=== PATIENT | female | born 1985 | race Native Hawaiian/Other Pacific Islander ===

== ENCOUNTER 2020-06-13 13:31 | Emergency (ER) | payer MEDICAID, OTHER ==
[~2020-06-13] VITALS: Ht 162.6 cm; Wt 70.8 kg
[2020-06-13 13:37] VITALS: BP 127/89
--- NOTE | 2020-06-13 13:38 | NUR ---
Pt ambulated to bed 12
[2020-06-13] MEDS ORDERED: cefTRIAXone 1,000 MG VIAL ONE (13:58)
[2020-06-13] MEDS ORDERED: LIDOCAINE MPF 1% 5 ML ONE (13:58)
[2020-06-13] MEDS: cefTRIAXone 1,000 MG in LIDOCAINE MPF 1% 2.1 ML IM ONE (14:05)
[2020-06-13] MEDS: KETOROLAC 30 MG/ML VIAL IM ONE (14:05)
--- NOTE | 2020-06-13 14:09 | NUR ---
34 Y/O FEMALE C/O RIGHT FOOT 4TH DIGIT TOE SWELLING X2-3 DAYS. PT DENIES ANY TRAUMA OR INJURY TO FOOT. NO DEFORMITY NOTED. MODERATE SWELLING NOTED. CMS+. PT AMBULATORY WITH STEADY GAIT. DENIES ANY N/V/D, CHILL, FEVER. PMH; DM NKA
--- NOTE | 2020-06-13 14:20 | NUR ---
PT STATES THAT SHES FEELING SLIGHLTY DIZZY AND NAUSEOUS UPON DISCHARGE, INSTRUCTED TO WAIT IN BED FOR 10 MINUTES TO MONITOR FOR ADVERSE DRUG REACTION
[2020-06-13 15:02] VITALS: BP 127/89
--- NOTE | 2020-06-13 15:03 | NUR ---
Patient discharged with v/s stable. Written and verbal after care instructions given and explained. Patient alert, oriented and verbalized understanding of instructions. Ambulatory with steady gait. All questions addressed prior to discharge. ID band removed. Patient advised to follow up with PMD. Rx of KEFLEX, IBUPROFEN given. Patient educated on indication of medication including possible reaction and side effects. Opportunity to ask questions provided and answered.
== END 2020-06-13 15:03 | disposition home or self-care (01) ==
LOC: MED 13:31
DX: L03.115 Cellulitis of right lower limb (principal); L97.519 Non-pressure chronic ulcer of other part of right foot with unspecified severity; E11.9 Type 2 diabetes mellitus without complications
CPT/HCPCS: 96372; 99284; J0696; J1885; J2001

== ENCOUNTER 2021-02-13 19:55 | Inpatient (IN) | payer MEDICAID, SELFPAY ==
[~2021-02-13] VITALS: Ht 157.5 cm; Wt 71.7 kg
[2021-02-13 20:13] VITALS: BP 112/48
[2021-02-13] MEDS ORDERED: NACL 0.9% 1,000 ML IV ONE (20:25)
--- NOTE | 2021-02-13 20:26 | NUR ---
35 Y/O F BIB AMB FROM HOME, PT C/O BODY ACHES, HEADACHE AND FEVER THAT STARTED 3 DAYS AGO. PT C/O EXTREME THIRST. PT IS CURRENTLY NOT C/O CHEST PAIN OR SOB. ORAL TEMP CURRENTLY IS 102 F. LMP: 6 YEARS AGO. NKA. PMH: DM2. GLU CHECK WAS 204. AMB ESTABLISHED 20G R AC IV, IV IS PATENT AND DRY. PT IS SITTING UP IN ROOM WITH GOWN ON.
--- NOTE | 2021-02-13 20:30 | NUR ---
RT AT BEDSIDE FOR ABG
--- NOTE | 2021-02-13 20:53 | NUR ---
LABS COLLECTED AND BLOOD CULTURES THROUGH IV, TOD, NOVEL, RSV AND FLU COLLECTED AT BEDSIDE. GIVEN TO JOSE ALLEN
[2021-02-13 21:00] LABS: BASOPHILS # (AUTO) 0.1 K/uL (0.00-0.22); BASOPHILS % (AUTO) 0.4 % (0.0-2.0); EOSINOPHILS % (AUTO) 0.1 % (0.0-4.0); HEMATOCRIT 31.2 % (36-48); HEMOGLOBIN 11.1 g/dL (12.0-16.0); LYMPHOCYTES # (AUTO) 0.9 K/uL (2.5-16.5); LYMPHOCYTES % (AUTO) 6.1 % (20.5-51.1); MEAN CORPUSCULAR HEMOGLOBIN 31 pg (27-31); MEAN CORPUSCULAR HGB CONC 36 g/dL (33-37); MEAN CORPUSCULAR VOLUME 86.7 fL (80-94); MONOCYTES # (AUTO) 0.7 K/uL (0.8-1.0); NEUTROPHILS # (AUTO) 12.5 K/uL (1.8-7.7); NEUTROPHILS % (AUTO) 88.4 % (42.2-75.2); PLATELET COUNT (AUTO) 251 K/uL (140-450); RED CELL DISTRIBUTION WIDTH 12.7 % (11.6-13.7); WHITE BLOOD COUNT (AUTO) 14.2 K/uL (4.8-10.8)
[2021-02-13 21:12] LABS: C-REACTIVE PROTEIN QUANT 16.8 mg/dL (0.0-0.9)
[2021-02-13 21:14] LABS: LACTATE DEHYDROGENASE 178 U/L (81-234)
[2021-02-13 21:16] LABS: ALBUMIN 3.5 g/dL (3.4-5.0); ANION GAP 15.9 (8-16); CARBON DIOXIDE 20.8 mmol/L (21-32); CREATININE 1.2 mg/dL (0.6-1.3); POTASSIUM 3.7 mmol/L (3.5-5.1); TOTAL BILIRUBIN 0.8 mg/dL (0.0-1.0)
[2021-02-13 21:33] LABS: PROTHROMBIN TIME 9.9 secs (10.8-13.4)
[2021-02-13 21:46] LABS: RSV NEGATIVE (NEGATIVE)
--- NOTE | 2021-02-13 21:47 | NUR ---
PER XUAN, FLU INVALID WILL REPEAT TEST
--- NOTE | 2021-02-13 22:10 | NUR ---
PT WAS GIVEN JELLO, JUICE AND PUDDING. PER ERMD, PT IS NOT NPO AND CAN HAVE FOOD AT THIS TIME.
[2021-02-13 23:00] LABS: APPEARANCE,URINE CLOUDY (CLEAR); BILIRUBIN,URINE NEGATIVE (NEGATIVE); BLOOD, URINE 1+ (NEGATIVE); COLOR,URINE YELLOW (YELLOW); LEUKOCYTE ESTERASE ,URINE 2+ (NEGATIVE); NITRITE, URINE POSITIVE (NEGATIVE); UGLUCOSE NEGATIVE (NEGATIVE)
[2021-02-13 23:09] LABS: RBC,URINE 0-5 /HPF (0-5); WBC,URINE 60-80 /HPF (0-5)
[2021-02-14] MEDS ORDERED: cefTRIAXone 1,000 MG VIAL ONE (00:24)
[2021-02-14] MEDS ORDERED: NACL 0.9% 1,000 ML IV ONE (00:25)
--- NOTE | 2021-02-14 00:43 | NUR ---
CONSENT WAS OBTAINED FOR CT ANGIO
--- NOTE | 2021-02-14 01:42 | NUR ---
PT BACK FROM IMAGING. WAS GIVEN WATER FOR C/O THIRST.
[2021-02-14] MEDS ORDERED: ACETAMINOPHEN EXTRA STRENGTH 500 MG TAB PO ONE (04:25)
[2021-02-14 06:00] LABS: BASOPHILS % (AUTO) 0.2 % (0.0-2.0); EOSINOPHILS % (AUTO) 0.4 % (0.0-4.0); HEMATOCRIT 28.8 % (36-48); HEMOGLOBIN 10.2 g/dL (12.0-16.0); LYMPHOCYTES # (AUTO) 1.3 K/uL (2.5-16.5); LYMPHOCYTES % (AUTO) 12.5 % (20.5-51.1); MEAN CORPUSCULAR HEMOGLOBIN 31 pg (27-31); MEAN CORPUSCULAR HGB CONC 35 g/dL (33-37); MEAN CORPUSCULAR VOLUME 88.7 fL (80-94); MONOCYTES # (AUTO) 0.8 K/uL (0.8-1.0); MONOCYTES % (AUTO) 7.3 % (1.7-9.3); NEUTROPHILS # (AUTO) 8.4 K/uL (1.8-7.7); NEUTROPHILS % (AUTO) 79.6 % (42.2-75.2); PLATELET COUNT (AUTO) 240 K/uL (140-450); RED BLOOD CELL COUNT(AUTO) 3.25 MIL/uL (4.20-5.40); RED CELL DISTRIBUTION WIDTH 12.6 % (11.6-13.7); WHITE BLOOD COUNT (AUTO) 10.5 K/uL (4.8-10.8)
--- NOTE | 2021-02-14 06:03 | NUR ---
Patient appears to be resting comfortably in bed. Vital Signs within normal limits. Respirations even and unlabored.
[2021-02-14 06:46] LABS: ANION GAP 16.5 (8-16); CARBON DIOXIDE 23.6 mmol/L (21-32); CREATININE 0.9 mg/dL (0.6-1.3); POTASSIUM 4.1 mmol/L (3.5-5.1); TOTAL BILIRUBIN 0.5 mg/dL (0.0-1.0)
--- NOTE | 2021-02-14 07:08 | NUR ---
REPORT GIVEN TO LENI DU.
--- NOTE | 2021-02-14 07:18 | NUR ---
REPORT RECEIVED FROM CATRINA DU, TRANSFER OF CARE AT THIS TIME.
--- NOTE | 2021-02-14 07:30 | NUR ---
PT SLEEPING WITH EVEN AND UNLABORED RESPIRATIONS. PT CONNECTED TO DEVELOPMENTAL BEHAVIORAL PHYSICIAN. WILL CONTINUE TO MONITOR
[2021-02-14] MEDS ORDERED: ZOLPIDEM 5 MG TAB PO PRN (07:45)
[2021-02-14] MEDS ORDERED: DOCUSATE SODIUM 100 MG GELCAP PO PRN (07:45)
[2021-02-14] MEDS ORDERED: ONDANSETRON 4 MG/2 ML VIAL IVP PRN (07:45)
[2021-02-14] MEDS ORDERED: HYDROcodone/APAP 5/325 MG 1 TAB TAB PO PRN (07:45)
[2021-02-14] MEDS ORDERED: LORazepam 2 MG/ML VIAL IM/IVP PRN (07:45)
[2021-02-14] MEDS ORDERED: HEPARIN PER PHARMACY MC PRN (07:45)
[2021-02-14] MEDS ORDERED: PIPERACILLIN/TAZOBACTAM 3.375 GM in DEXTROSE 5% 50 ML IV SCH (08:00)
[2021-02-14] MEDS ORDERED: PIPERACILLIN/TAZOBACTAM 3.375 GM VIAL IV ONE ×4 (08:04→23:47)
--- NOTE | 2021-02-14 08:15 | NUR ---
PT GIVEN BREAKFAST TRAY. PT SITTING IN BED WITH EVEN AND UNLABORED RESPIRATIONS
[2021-02-14] MEDS: PIPERACILLIN/TAZOBACTAM 3.375 GM in DEXTROSE 5% 50 ML IV SCH ×4 (08:17→23:55)
[2021-02-14] MEDS: NACL 0.9% 1,000 ML IV SCH ×2 (08:28→21:50)
--- NOTE | 2021-02-14 08:36 | NUR ---
PATIENT HAS BEEN SCREENED AND CATEGORIZED MODERATE NUTRITION RISK. PATIENT WILL BE SEEN WITHIN 3-5 DAYS OF ADMISSION. 02/16/21 02/18/[address]
[2021-02-14 08:50] LABS: FREE T4 (FREE THYROXINE) 0.99 ng/dL (0.76-1.46); MAGNESIUM 1.9 mg/dL (1.8-2.4); PHOSPHORUS 2.7 mg/dL (2.5-4.9); THYROID STIMULATING HORMONE 1.5 uIU/mL (0.34-3.74)
[2021-02-14 09:41] LABS: BARBITURATE, URINE NEGATIVE ng/ml (NEG <=200); BENZODIAZEPINE, URINE NEGATIVE ng/mL (NEG <=200); CANNABINOID, URINE NEGATIVE ng/mL (NEG <=50); COCAINE, URINE NEGATIVE ng/mL (NEG <=300); OPIATE, URINE NEGATIVE ng/mL (NEG <=2000); PHENCYCLIDINE SCREEN,URINE NEGATIVE ng/mL (NEG <=25)
--- NOTE | 2021-02-14 10:00 | NUR ---
PT LAYING COMFORTABLY IN BED WITH EVEN AND UNLABORED RESPIRATIONS. BED IN LOWEST POSITION, BRAKES LOCKED, X1 SIDERAIL UP. WILL CONTINUE TO MONITOR
[2021-02-14] MEDS: hePARIN / DEXT 5% PREMIX 250 ML IV SCH (10:47)
--- NOTE | 2021-02-14 11:19 | NUR ---
SOCIAL WORK NOTE: Patient's Orientation Person Situation Place Time Information Provided By PATIENT Comments SW WAS UNABLE TO MEET PATIENT AT BEDSIDE TO COMPLETE ASSESSMENT. SW CONTACTED PATIENT [phone] AND COMPLETED ASSESSMENT WITH PATIENT TELEPHONICALLY. Oyster Fisherman, Realtionship and Phone Number GUILLERMO BRUNSON SIGNIFICANT OTHER [phone] Healthcare Power of Rn Informatics No Does Patient Have a POLST No Identifying Problems No Social Work Triggers Is A Social Work Consult Needed No Mandate Report Filed No Explanation Of Identifying Problems PATIENT IS A 35-YEAR-OLD MAEL ADMITTED FOR POSSIBLE SEPSIS AND UTI. PATIENT HAS PMHX OF SEPSIS AND UTI. PATIENT DENIED SUBSTANCE ABUSE OR MENTAL HEALTH. Admitted From Home Pre-Admission Level Of Functioning Status Independent/Ambulatory Prior Resources/Services Used In Last 12 Months No Prior Resources Used Prior DME No Prior DME Used Dialysis Comments N/A Living Situation Lives With Family House Patient Had Caregiver No Home Support No Caregiver Issues Financial Issues No Known Financial Issue Referral To The Financial Counselor Needed No Factors/Needs No D/C Needs Identified Pt/Rep Participated In Discharge Plan Yes Patient/Family Agress With Discharge Plan Yes Discharge Plan Comments TENTATIVE DISCHARGE PLAN IS FOR PATIENT TO RETURN HOME. DC Plan Status Initiated
--- NOTE | 2021-02-14 11:46 | NUR ---
US AT BEDSIDE
--- NOTE | 2021-02-14 12:09 | NUR ---
LUNCH TRAY PROVIDED.
--- NOTE | 2021-02-14 14:55 | NUR ---
PT C/O 05/24 HEADACHE AND INCREASED CHEST PAIN AND PRESSURE WHEN SHE TAKES A DEEP BREATH. PT REQUESTING PAIN MEDS. DR MONGE CONTACTED WITH PRN ORDER OF MORHPINE 2MG Q3H
[2021-02-14] MEDS: MORPHINE SULFATE 2 MG/ML SYR IVP PRN ×2 (15:22→19:09)
--- NOTE | 2021-02-14 15:34 | NUR ---
PT STATES SHE NO LONGER HAS A HEADACHE AND HER CHEST PRESSURE FEELS BETTER. WILL CONTINUE TO MONITOR
--- NOTE | 2021-02-14 16:46 | NUR ---
LAB AT BEDSIDE FOR PTT LAB DRAW
--- NOTE | 2021-02-14 19:28 | NUR ---
GAVE REPORT TO AMARI DU, TRANSFER OF CARE AT THIS TIME
--- NOTE | 2021-02-14 20:38 | NUR ---
REPORT GIVEN TO [facility] NURSE; ANNA MARIE PT WILL GO TO RM 120B TELE. TRANSPORTED VIA [facility] WITH NURSE EMT AND MONITOR.
--- NOTE | 2021-02-14 21:20 | NUR ---
PT TAKEN TO MST 120B
--- NOTE | 2021-02-14 21:40 | NUR ---
RECEIVED PATIENT FROM ED. PATIENT AOX4, AMBULATORY. PT ON HEP GTT INFUSING AT 13ML/HR. NO C/O PAIN AT THIS TIME. PT ON RA, NO SOB. PT ON TELE MONITORING. BED LOWERED WITH CALL LIGHT WITHIN REACH. WILL CONTINUE TO MONITOR
[2021-02-14] MEDS: ACETAMINOPHEN 325 MG TAB PO PRN (21:54)
[2021-02-15 00:08] VITALS: BP 109/67
--- NOTE | 2021-02-15 01:45 | NUR ---
PT ASLEEP IN BED. NO S/S OF DISTRESS NOTED
[2021-02-15] MEDS: hePARIN / DEXT 5% PREMIX 250 ML IV SCH ×4 (02:00→15:50)
[2021-02-15 04:00] VITALS: BP 101/71
[2021-02-15] MEDS ORDERED: PIPERACILLIN/TAZOBACTAM 3.375 GM VIAL IV ONE (06:19)
[2021-02-15] MEDS: PIPERACILLIN/TAZOBACTAM 3.375 GM in DEXTROSE 5% 50 ML IV SCH ×3 (06:31→17:53)
[2021-02-15] MEDS: NACL 0.9% 1,000 ML IV SCH ×3 (06:34→22:00)
[2021-02-15 07:28] LABS: BASOPHILS % (AUTO) 0.6 % (0.0-2.0); EOSINOPHILS # (AUTO) 0.1 K/uL (0-0.4); EOSINOPHILS % (AUTO) 1.6 % (0.0-4.0); HEMATOCRIT 26.6 % (36-48); HEMOGLOBIN 9.5 g/dL (12.0-16.0); LYMPHOCYTES # (AUTO) 1.8 K/uL (2.5-16.5); LYMPHOCYTES % (AUTO) 30.4 % (20.5-51.1); MEAN CORPUSCULAR HEMOGLOBIN 31 pg (27-31); MEAN CORPUSCULAR HGB CONC 36 g/dL (33-37); MEAN CORPUSCULAR VOLUME 87.4 fL (80-94); MONOCYTES # (AUTO) 0.6 K/uL (0.8-1.0); MONOCYTES % (AUTO) 10.3 % (1.7-9.3); NEUTROPHILS # (AUTO) 3.4 K/uL (1.8-7.7); NEUTROPHILS % (AUTO) 57.1 % (42.2-75.2); PLATELET COUNT (AUTO) 207 K/uL (140-450); RED BLOOD CELL COUNT(AUTO) 3.04 MIL/uL (4.20-5.40); RED CELL DISTRIBUTION WIDTH 12.4 % (11.6-13.7)
--- NOTE | 2021-02-15 07:30 | NUR ---
PATIENT REPORT GIVEN TO AM NURSE. PATIENT ENDORSED IN STABLE CONDITION
[2021-02-15 07:31] LABS: ANION GAP 12.8 (8-16); CARBON DIOXIDE 25.9 mmol/L (21-32); POTASSIUM 3.7 mmol/L (3.5-5.1)
[2021-02-15 07:34] LABS: MAGNESIUM 2.1 mg/dL (1.8-2.4); PHOSPHORUS 2.8 mg/dL (2.5-4.9)
--- NOTE | 2021-02-15 07:35 | NUR ---
RECEIVED BEDSIDE REPORT FROM NIGHTSHIFT NURSE. PT RESTING IN BED. ABLE TO MAKE NEEDS KNOWN. RESPIRATIONS EVEN AND UNLABORED WITH NO SOB OR RESPIRATORY DISTRESS. SKIN WARM AND DRY TO TOUCH. IV SITES IN RAC 20G AND LFA 20G IS CLEAN, DRY, AND INTACT. SAFETY MEASURES IN PLACE. WILL CONTINUE TO MONITOR
[2021-02-15 08:00] VITALS: BP 103/69
[2021-02-15] MEDS: ACETAMINOPHEN 325 MG TAB PO PRN (08:23)
--- NOTE | 2021-02-15 08:24 | NUR ---
PT COMPLAINED OF MILD HEADACHE. PRN TYLENOL ADMINISTERED PRESCRIBED PER MD ORDER. PT TOLERATED WELL. MEDICATION EDUCATION PERFORMED. PT VERBALIZED UNDERSTANDING. SAFETY MEASURES IN PLACE. WILL CONTINUE TO MONITOR
--- NOTE | 2021-02-15 10:00 | NUR ---
PT RESTING IN BED. ABLE TO MAKE NEEDS KNOWN. RESPIRATIONS EVEN AND UNLABORED WITH NO SOB OR RESPIRATORY DISTRESS. SKIN WARM AND DRY TO TOUCH. WILL CONTINUE TO MONITOR
[2021-02-15 12:00] VITALS: BP 110/71
--- NOTE | 2021-02-15 12:32 | NUR ---
ADMINISTERED SCHED MED PRESCRIBED PER MD ORDER. PT TOLERATED WELL. MEDICATION EDUCATION PERFORMED. PT VERBALIZED UNDERSTANDING. SAFETY MEASURES IN PLACE. WILL CONTINUE TO MONITOR
--- NOTE | 2021-02-15 14:03 | NUR ---
PT RESTING IN BED. ABLE TO MAKE NEEDS KNOWN. RESPIRATIONS EVEN AND UNLABORED WITH NO SOB OR RESPIRATORY DISTRESS. SKIN WARM AND DRY TO TOUCH. SAFETY MEASURES IN PLACE. WILL CONTINUE TO MONITOR
--- NOTE | 2021-02-15 15:53 | NUR ---
ADJUSTED PT HEP DRIP PER MD ORDER. PT TOLERATED WELL. SAFETY MEASURES IN PLACE. WILL CONTINUE TO MONITOR
[2021-02-15 16:00] VITALS: BP 113/72
--- NOTE | 2021-02-15 17:53 | NUR ---
ADMINISTERED SCHED MED PRESCRIBED PER MD ORDER. PT TOLERATED WELL. MEDICATION EDUCATION PERFORMED. PT VERBALIZED UNDERSTANDING. SAFETY MEASURES IN PLACE. WILL CONTINUE TO MONITOR
--- NOTE | 2021-02-15 19:10 | NUR ---
ENDORSED AT BEDSIDE TO NIGHTSHIFT FOR CONTINUITY OF CARE. PT IS STABLE
--- NOTE | 2021-02-15 19:30 | NUR ---
RECEIVED REPORT FROM PAPA MARTINEZ FOR CONTINUITY OF CARE, PT IN STABLE CONDITION. SHE IS AOX4 BILINGUAL CITIZEN OF [place]; PT IN BED LYING DOWN ON ROOM AIR RESPIRATIONS EVEN AND UNLABORED. PT SKIN INTACT, SHE HAS A 20G ON LEFT WRIST RUNNING NORMAL SALINE AT 100MLS AND RAC 20G RUNNING HEPARIN GTT AT 1700 UNITS/HR. ALL ORDERED PRECAUTIONS IN PLACE.
[2021-02-15 20:00] VITALS: BP 120/78
--- NOTE | 2021-02-15 20:30 | NUR ---
PT UP AND AMBULATED WITH STEADY GAIT TO TOILET AND BACK. V/S FOLLOWS: T 97.5 P 78 R 20 B/P 120/78 02 99% ON ROOM AIR. PT FINGERSTICK IS 300. WILL SPEAK WITH MD TO ORDER FINGERSTICKS AND INSULIN S/S. ALL REQUESTED NEEDS ATTENDED BY STAFF.
[2021-02-15] MEDS ORDERED: DEXTROSE 50% 50 ML SYR IVP PRN (21:20)
--- NOTE | 2021-02-15 21:30 | NUR ---
SPOKE WITH COVERING MD KENDRICK, WHO APPROVED OF ORDERING THE FINGERSTICKS AND INSULIN SLIDING SCALE. PT GIVEN 6 UNITS OF HUMALOG COVERAGE FOR FINGERSTICK OF 300. PT ALSO C/O OF L WRIST 20G IV SITE FEELING PUFFY. IV STOPPED DUE TO AREA STARTING TO INFILTRATE, WILL DISCONTINUE IV SITE AND PROVIDE NEW ONE FOR PT.
[2021-02-15] MEDS: INSULIN LISPRO SLIDING SCALE 100 UNITS/ML VIAL SUBQ PRN (22:06)
--- NOTE | 2021-02-15 22:15 | NUR ---
OLD IV SITE WAS DISCONTINUED (L WRIST 20 GUAGE) INNER CANNULA CAME OUT INTACT. GENTLE PRESSURE APPLIED AND AREA BANDAGED. NEW IV SITE PROVIDED AT R WRIST 24G WHICH IS RUNNING NEW BAG OF NORMAL SALINE HUNG AND RUNNING AT 100MLS/HR. EDUCATION REGARDING DX OF PE AND THE ORDERED HEPARIN GTT PROVIDED AT BEDSIDE, PT VERBALIZED UNDERSTANDING. PT ALSO C/O OF PAIN IN NECK 04/24, SHE WAS GIVEN 1 TAB OF NORCO PO/PRN FOR MODERATE PAIN , WILL MONITOR FOR PAIN RELIEF. ALL UNIVERSAL PRECAUTIONS IN PLACE.
[2021-02-16] VITALS: BP 110/70
--- NOTE | 2021-02-16 00:30 | NUR ---
PT IN BED RESTING WITH EYES CLOSED BUT AROUSABLE TO NAME AND LIGHT TOUCH. PT SAID SHE HAS NO MORE PAIN AT THIS TIME. V/S FOLLOWS: T 97.9 P 77 R 20 B/P 110/70 02 98% ON ROOM AIR. HUNG IV ABT ZOSYN FOR URINARY TRACT INFECTION. PT MADE AWARE OF PURPOSE AND EDUCATED REGARDING ZOSYN MEDICATION. PT VERBALIZED UNDERSTANDING OF MEDICATION. ZOSYN RUNNING AT 100MLS/HR ORDERED. ALL UNIVERSAL PRECAUTIONS IN PLACE. LAB DRAWS WERE DONE AT BEDSIDE FOR PTT. WILL FOLLOW UP WITH RESULTS. ALL UNIVERSAL PRECAUTIONS IN PLACE.
[2021-02-16] MEDS: PIPERACILLIN/TAZOBACTAM 3.375 GM in DEXTROSE 5% 50 ML IV SCH ×4 (00:39→17:01)
--- NOTE | 2021-02-16 01:35 | NUR ---
PTT CAME BACK AND IT WAS 42.3 PT GIVEN 2400 BOLUS OF HEPARIN AND GTT INCREASED TO 100 UNITS SO PT IS NOW ON 1800 UNITS. NEXT LAB DRAW ORDERED.
[2021-02-16 04:00] VITALS: BP 112/76
--- NOTE | 2021-02-16 04:15 | NUR ---
PT IN BED WITH EYES CLOSED, BUT AROUSABLE TO NAME AND LIGHT TOUCH. V/S FOLLOWS: T 97.6 P 70 R 20 B/P 112/76 02 98% ON ROOM AIR. IV SITES INTACT AND RUNNING N/S AT 100MLS ON RIGHT WRIST AND 1800 UNITS (18MLS) ON RIGHT AC. PT DENIES ANY PAIN NO S/S OF BLEEDING. ALL UNIVERSAL FALLS PRECAUTIONS IN PLACE.
[2021-02-16] MEDS: hePARIN / DEXT 5% PREMIX 250 ML IV SCH ×4 (04:43→21:29)
--- NOTE | 2021-02-16 05:20 | NUR ---
NEW BAG OF HEPARIN HUNG AND RUNNING AT 1800 UNITS ORDERED, NEW LINENS PROVIDED TO BED AND ALL REQUESTED NEEDS ATTENDED BY STAFF. ALL UNIVERSAL FALLS PRECAUTIONS IN PLACE.
--- NOTE | 2021-02-16 06:30 | NUR ---
PT FINGERSTICK IS 192 2 UNITS OF HUMALOG COVERAGE GIVEN PER S/S. ZOMARY HUNG AND RUNNING ORDERED. PT VERBALIZED UNDERSTANDING OF MEDICATION AND ITS PURPOSES. ALL ORDERED PRECAUTIONS IN PLACE.
[2021-02-16] MEDS: INSULIN LISPRO SLIDING SCALE 100 UNITS/ML VIAL SUBQ PRN ×4 (06:34→21:34)
[2021-02-16] MEDS: BLOOD GLUCOSE MONITORING 1 DEV DEV FS SCH ×4 (06:46→21:19)
--- NOTE | 2021-02-16 07:25 | NUR ---
REPORT GIVEN TO KIKE DU DAYSHIFT NURSE AT BEDSIDE FOR CONTINUITY OF CARE, PT IN STABLE CONDITION.
--- NOTE | 2021-02-16 07:30 | NUR ---
RECEIVED PT FROM HELMINTHOLOGIST NURSE, BRAD, PT IS AMBULATING FROM THE BATHROOM TO THE BED, ON RA, WITH STEADY GAIT, NOT A FALL RISK, IV LINES NOTED ON THE RQAC G. 20 WITH HEPARIN DRIP INFUSING AT 1800 UNITS/HR, AND ON THE RT WRIST G.20 WITH NS INFUSING AT 100ML/HR, INTACT, PT DENIES PAIN AND NO SIGN OF BLEEDING AND DISTRESS NOTED, WILL CONTINUE TO BE MONITORED.
[2021-02-16 08:00] VITALS: BP 110/73
[2021-02-16 08:58] LABS: BASOPHILS % (AUTO) 0.4 % (0.0-2.0); EOSINOPHILS # (AUTO) 0.1 K/uL (0-0.4); EOSINOPHILS % (AUTO) 1.7 % (0.0-4.0); HEMATOCRIT 25.9 % (36-48); HEMOGLOBIN 9.1 g/dL (12.0-16.0); LYMPHOCYTES % (AUTO) 31.9 % (20.5-51.1); MEAN CORPUSCULAR HEMOGLOBIN 31 pg (27-31); MEAN CORPUSCULAR HGB CONC 35 g/dL (33-37); MEAN CORPUSCULAR VOLUME 88.7 fL (80-94); MONOCYTES # (AUTO) 0.4 K/uL (0.8-1.0); MONOCYTES % (AUTO) 6.6 % (1.7-9.3); NEUTROPHILS # (AUTO) 3.7 K/uL (1.8-7.7); NEUTROPHILS % (AUTO) 59.4 % (42.2-75.2); PLATELET COUNT (AUTO) 229 K/uL (140-450); RED BLOOD CELL COUNT(AUTO) 2.93 MIL/uL (4.20-5.40); RED CELL DISTRIBUTION WIDTH 12.5 % (11.6-13.7); WHITE BLOOD COUNT (AUTO) 6.2 K/uL (4.8-10.8)
[2021-02-16 09:03] LABS: ANION GAP 9.8 (8-16); CARBON DIOXIDE 27.7 mmol/L (21-32); CREATININE 0.9 mg/dL (0.6-1.3); POTASSIUM 3.5 mmol/L (3.5-5.1)
--- NOTE | 2021-02-16 09:09 | NUR ---
RECEIVED A CALL FROM CAKE PUNCHER, JOEL, FOR PT'S PTT RESULT OF 67.7 AND CHECKED PROTOCOL AND NO CHANGE IN THE HEPARIN DRIP PER PROTOCOL, WILL MONITOR PT.
[2021-02-16] MEDS: NACL 0.9% 1,000 ML IV SCH ×2 (11:15→23:33)
--- NOTE | 2021-02-16 11:27 | NUR ---
PT WAS THE GIVEN THE SCHEDULED MEDICATIONS VIA SUBQ AND IVPB, BLOOD GLUCOSE IS 242, WILL MONITOR PT.
[2021-02-16] MEDS: metFORMIN 500 MG TAB PO SCH ×2 (11:32→16:13)
[2021-02-16 12:00] VITALS: BP 122/79
[2021-02-16] MEDS: ACETAMINOPHEN 325 MG TAB PO PRN ×2 (14:47→23:34)
--- NOTE | 2021-02-16 14:47 | NUR ---
PT WAS GIVEN TYLENOL FOR THE HEADACHE, WILL MONITOR PT.
[2021-02-16 16:00] VITALS: BP 113/64
--- NOTE | 2021-02-16 16:19 | NUR ---
PT WAS GIVEN THE SCHEDULED ORAL MEDICATION AND INSULIN 4 UNITS ON ABDOMEN FOR BLOOD GLUCOSE OF 218, WILL MONITOR PT.
--- NOTE | 2021-02-16 17:01 | NUR ---
PT WAS GIVEN IVPB ZOSYN NOW.
--- NOTE | 2021-02-16 19:15 | NUR ---
ENDORSED PT TO LEARNING AND DEVELOPMENT ANALYST NURSE ZABRINA FOR CONTINUITY OF CARE.
[2021-02-16 20:00] VITALS: BP 112/70
[2021-02-17] VITALS: BP 114/70
--- NOTE | 2021-02-17 | NUR ---
made rounds , no s/x of acute distress noted . will cont. to monitor .
[2021-02-17] MEDS: PIPERACILLIN/TAZOBACTAM 3.375 GM in DEXTROSE 5% 50 ML IV SCH ×4 (01:00→18:07)
--- NOTE | 2021-02-17 02:00 | NUR ---
SLEEPING - ON TELE MONITOR . CALL LIGHT WITHIN REACH . WILL CONT. TO MONITOR .
[2021-02-17 04:00] VITALS: BP 119/74
[2021-02-17] MEDS: NACL 0.9% 1,000 ML IV SCH ×3 (05:45→23:29)
--- NOTE | 2021-02-17 06:00 | NUR ---
NO COMPLAIN MADE .
[2021-02-17] MEDS: BLOOD GLUCOSE MONITORING 1 DEV DEV FS SCH ×4 (06:57→21:20)
--- NOTE | 2021-02-17 07:10 | NUR ---
ENDORSED - PT - STABLE .
--- NOTE | 2021-02-17 07:10 | NUR ---
RECEIVED REPORT FROM NIGHT NURSE FOR CONTINUITY OF CARE. PT ON CONTACT FOR ESBL IN URINE. PT UZBEK SPEAKING AAXO4. PT ON ROOM AIR, NO SIGNS OF DISTRESS NOTED. PT HAS L WRIST 20G INFUSING HEPARIN DRIP OF 1800 UNITS/ H. PT HAS RAC 20G INFUSING NS AT 100 ML/H. SKIN INTACT. SAFETY MEASURES IN PLACE, WILL CONTINUE TO MONITOR.
[2021-02-17 08:00] VITALS: BP 124/80
[2021-02-17] MEDS: metFORMIN 500 MG TAB PO SCH ×2 (08:23→17:29)
--- NOTE | 2021-02-17 08:24 | NUR ---
ADMINISTERED SCHEDULED MEDICATION, MEDICATION EDUCATION PROVIDED. PT NODDED UNDERSTANDING. PT TOLERATED WELL. WILL CONTINUE TO MONITOR
[2021-02-17] MEDS: INSULIN LISPRO SLIDING SCALE 100 UNITS/ML VIAL SUBQ PRN ×3 (11:37→20:57)
--- NOTE | 2021-02-17 11:38 | NUR ---
ADMINISTERED SCHEDULED MEDICATION, 2 UNITS OF HUMALOG FOR BLOOD GLUCOSE OF 197, MEDICATION EDUCATION PROVIDED. PT TOLERATED WELL. PT IS STABLE, WILL CONTINUE TO MONITOR.
[2021-02-17 12:00] VITALS: BP 137/82
[2021-02-17] MEDS: hePARIN / DEXT 5% PREMIX 250 ML IV SCH (12:46)
--- NOTE | 2021-02-17 12:46 | NUR ---
ADMINISTERED NEW BAG OF HEPARIN DRIP. MEDICATION EDUCATION PROVIDED. WILL CONTINUE TO MONITOR.
--- NOTE | 2021-02-17 12:58 | NUR ---
NOTIFIED DR ADAN PT STATES SHE FEELS BLOATED AND IS NOT HUNGRY. RECEIVED TORB FROM DR ADAN FOR SIMETHICONE 80MG Q8H PRN FOR BLOATING. WILL INPUT ORDER AND CARRY IT OUT.
[2021-02-17] MEDS ORDERED: SIMETHICONE 80 MG TAB.CHEW PO PRN (13:00)
--- NOTE | 2021-02-17 13:03 | NUR ---
ADMINISTERED SIMETHICONE FOR BLOATING, MEDICATION EDUCATION PROVIDED. PT NODDED UNDERSTANDING. PT TOLERATED WELL. WILL CONTINUE TO MONITOR
--- NOTE | 2021-02-17 14:02 | NUR ---
DC PLANNIN YRS OLD FEMALE PATIENT WAS ADMITTED FROM HOME WITH A DX OF POSSIBLE SEPSIS ,UTI AND STABLE PE. PT HAS A HX OF CXR NEGATIVE, CT CHEST SUGGESTED PE AND VENOUS DOPPLER NEGATIVE FOR DVT. RAPID AND PCR COVID TEST NEGATIVE. ADMINISTERED IVF, IV ABX WITH ZOSYN, HEPARIN DRIP FOR PE. CONSULTED WITH SHA AND LINETTE. DC PLAN TO GO HOME WHEN STABLE. CM TO FOLLOW Addendum: 02/18/21 at 1118 by Romana Che RN DC PLANNING: SEEN BY SHA AND LINETTE. DC/ED HEPARIN DRIP AND BRIDGES TO ELIQUIS, CONTINUE IV ABX MEROPENEM AND ZOSYN. DC PLAN TO GO HOME WITH HOME HEALTH FOR IV ABX WITH ERTAPENEM 1GM IV DAILY FOR 7 DAYS FAXED TO [facility]. CM TO FOLLOW Addendum: 02/18/21 at 1157 by Sosa Mason CM DC BREAKER LAYER: FOLLOWED UP WITH MARILEE AT [facility] [phone] THEY RECEIVED ORDER. Addendum: 02/18/21 at 1201 by Sosa Mason CM REBEKAH EPPS: MARILEE AT [facility] PROVIDED TELEPHONE NUMBER FOR [facility] [phone] THEY ACCEPT [facility]. SPOKE TO MARIA DEL ROSARIO AT [facility] THEY MAY BE ABLE TO ACCEPT HOWEVER IT IS CASE TO CASE. FAXED ORDER WILL FOLLOW UP Addendum: 02/18/21 at 1300 by Sosa Mason CM REBEKAH EPPS: FOLLOWED UP WITH MARIA DEL ROSARIO AT [facility] HE IS WORKING ON FINDING AN AVAILABLE NURSE. HE WILL CONTACT ME BACK SHORTLY. Addendum: 02/18/21 at 1304 by Sosa Mason CM REBEKAH EPPS: RECEIVED A PHONE CALL FROM NICK FROM [facility] THEY ARE ABLE TO ACCEPT PATIENT. FOLLOWED UP WITH MARILEE AT [facility] THEY WILL DELIVER THE IV ABX TODAY TO PATIENTS HOME Addendum: 02/18/21 at 1413 by Sosa Mason CM REBEKAH EPPS: RECEIVED A CALL FROM MARIA DEL ROSARIO FROM [facility] THEY ARE NOT ABLE TO ACCEPT PATIENT BECAUSE PATIENTS MEDI-JACKIE IS RESTRICTED Addendum: 02/18/21 at 1425 by Sosa Mason CM REBEKAH BREAKER LAYER: SPOKE TO MARILEE AT [facility] [phone] OPT 3. SHE SPOKE TO HER CRM SPECIALIST AND HE IS AGREEABLE IN TEACHING THE PATIENT HOW TO ADMINISTER THE MEDICATION EARLY TOMORROW MORNING.
[2021-02-17 16:00] VITALS: BP 119/75
--- NOTE | 2021-02-17 16:00 | NUR ---
ENDORSE PT TO DAVIDA FOR CONTINUITY OF CARE
--- NOTE | 2021-02-17 16:10 | NUR ---
REC'D PT FOR CONTINUITY OF CARE. A/OX4 [place]ESE SPEAKER, RA. HEPARIN DRIP. CALL LIGHT WITHIN REACH. WILL CONTINUE TO MONITOR
--- NOTE | 2021-02-17 17:15 | NUR ---
FINGER GLUCOSE 223 WILL COVER ACCORDING TO SLIDING SCALE
--- NOTE | 2021-02-17 18:10 | NUR ---
ADMINISTER MEDICATIONS PER MD ORDER, PT TOLERATED PROCEDURE WELL. MOA AND SIDE EFFECTS DISCUSSED WITH PT WHO VERBALIZED UNDERSTANDING IN [place].
--- NOTE | 2021-02-17 18:50 | NUR ---
PT COMPLAINED OF ABD DISCOMFORT AND "TRAPPED GAS" SENT MESSAGE TO PHYSICIAN WHO ORDER KUB, AND FOR PT TO AMBULATE MUCH POSSIBLE, PT WAS AMBULATING IN ROOM.
--- NOTE | 2021-02-17 19:35 | NUR ---
ENDORSED PT FOR CONTINUITY OF CARE. PT STABLE
--- NOTE | 2021-02-17 19:40 | NUR ---
RECEIVED REPORT FROM DAVIDA DU DAYSHIFT AT BEDSIDE FOR CONTINUITY OF CARE, PT IN STABLE CONDITION.
[2021-02-17 20:00] VITALS: BP 136/86
--- NOTE | 2021-02-17 20:15 | NUR ---
PT UP TO TOILET, SHE AMBULATED BACK TO BED WITH A STEADY GAIT. SHE HAS 2 IV SITES RAC 20 GUAGE AND RUNNING HEPARIN GTT AT 1800 UNITS. FLUSHED PATENT AND RIGHT WRIST 24 GUAGE INTACT AND RUNNING NORMAL SALINE. V/S FOLLOWS: T 97.6 P 70 R 16 B/P 136/86 02 97%. PT HAS C/O OF DIARRHEA X2 AND A STOMACH ACHE /, WILL PROVIDED PAIN MEDICATION. ALL ORDERED PRECAUTIONS IN PLACE.
[2021-02-17] MEDS: APIXABAN 2.5 MG TAB PO SCH (21:07)
[2021-02-17] MEDS: MORPHINE SULFATE 2 MG/ML SYR IVP PRN (21:11)
--- NOTE | 2021-02-17 21:15 | NUR ---
PT FINGERSTICK IS 191, SHE WAS GIVEN 2 UNITS OF HUMALOG COVERAGE. PT ALSO GIVEN MORPHINE IVP FOR 7/10 STOMACH PAIN. SPOKE WITH MD ADAN, BECAUSE PT IS ON HEPARIN GTT ( 3 THERAPEUTIC LEVELS DRAWS OF PTT ) AND AN ELIQUIS 10MG. DR ADAN SAID OK TO D/C HEPARIN GTT. PT GIVEN ELIQUIS 10 MG ORDERED. EDUCATION REGARDING MEDICATION PROVIDED AT BEDSIDE. MERREM IV HUNG AND RUNNING ORDERED. WILL MONITOR FOR PAIN RELIEF AND ADVERSE REACTIONS OF MERREM IV ABT. ALL ORDERED PRECAUTIONS IN PLACE.
[2021-02-17] MEDS: MEROPENEM 1,000 MG in NACL 0.9% 100 ML IV SCH (21:22)
--- NOTE | 2021-02-17 22:15 | NUR ---
PT UP TO TOILET AND BACK , SHE SAID SHE HAS NO MORE PAIN. PT ALSO SAID SHE HAD NO REACTION TO THE MERREM IV ABT. ALL ORDERED PRECAUTIONS IN PLACE.
--- NOTE | 2021-02-17 23:30 | NUR ---
RECEIVED REPORT FROM BRAD DU FOR CONTINUITY OF CARE.
--- NOTE | 2021-02-17 23:35 | NUR ---
GAVE REPORT TO KRISTIN DU FOR CONTINUITY OF CARE, PT IN STABLE CONDITION.
[2021-02-18] VITALS: BP 122/71
--- NOTE | 2021-02-18 01:37 | NUR ---
PATIENT COMPLAINED THAT HER IV SITE IS LEAKING. ASSESS IV SITE. FLUSHED IV SITE NO LEAKING NOTED. WILL CONTINUE TO MONITOR
--- NOTE | 2021-02-18 03:23 | NUR ---
MADE ROUNDS. PATIENT SLEEPING RESPIRATION EVEN UNLABORED ON ROOM AIR. NO DISTRESS NOTED. WILL CONTINUE TO MONITOR
[2021-02-18 04:00] VITALS: BP 132/80
--- NOTE | 2021-02-18 04:45 | NUR ---
MERREM IV ANTIBIOTIC GIVEN PER ORDER. WILL CONTINUE TO MONITOR
[2021-02-18] MEDS: MEROPENEM 1,000 MG in NACL 0.9% 100 ML IV SCH ×2 (04:58→12:03)
[2021-02-18 05:13] LABS: BASOPHILS % (AUTO) 0.6 % (0.0-2.0); EOSINOPHILS # (AUTO) 0.1 K/uL (0-0.4); EOSINOPHILS % (AUTO) 1.6 % (0.0-4.0); HEMATOCRIT 25.1 % (36-48); HEMOGLOBIN 8.8 g/dL (12.0-16.0); LYMPHOCYTES # (AUTO) 2.1 K/uL (2.5-16.5); LYMPHOCYTES % (AUTO) 34.2 % (20.5-51.1); MEAN CORPUSCULAR HEMOGLOBIN 31 pg (27-31); MEAN CORPUSCULAR HGB CONC 35 g/dL (33-37); MEAN CORPUSCULAR VOLUME 88.1 fL (80-94); MONOCYTES # (AUTO) 0.3 K/uL (0.8-1.0); MONOCYTES % (AUTO) 5.7 % (1.7-9.3); NEUTROPHILS # (AUTO) 3.5 K/uL (1.8-7.7); NEUTROPHILS % (AUTO) 57.9 % (42.2-75.2); PLATELET COUNT (AUTO) 262 K/uL (140-450); RED BLOOD CELL COUNT(AUTO) 2.85 MIL/uL (4.20-5.40); RED CELL DISTRIBUTION WIDTH 12.7 % (11.6-13.7); WHITE BLOOD COUNT (AUTO) 6.1 K/uL (4.8-10.8)
[2021-02-18 05:42] LABS: ANION GAP 11.5 (8-16); CARBON DIOXIDE 26.9 mmol/L (21-32); CREATININE 0.9 mg/dL (0.6-1.3); POTASSIUM 3.4 mmol/L (3.5-5.1)
[2021-02-18] MEDS: BLOOD GLUCOSE MONITORING 1 DEV DEV FS SCH ×3 (06:34→16:21)
--- NOTE | 2021-02-18 07:13 | NUR ---
ENDORSED PATIENT TO DAY SHIFT NURSE FOR CONTINUITY OF CARE
--- NOTE | 2021-02-18 07:15 | NUR ---
RECEIVED PT FROM GOVERNMENT MINISTER NURSE, OZZIE, PT IS AWAKE AND LYING ON THE BED WITH SIDE RAILS UP AND CALL LIGHT WITHIN REACH, IV LINES NOTED ON THE RAC G. 20 WITH NS INFUSING AT 100ML/HR, AND RT WRIST G. 24 ON SALINE LOCK, PT IS ON RA, DENIES PAIN AND NO SIGN OF DISTRESS NOTED. WILL CONTINUE TO BE MONITORED.
[2021-02-18 08:00] VITALS: BP 123/63
[2021-02-18] MEDS: metFORMIN 500 MG TAB PO SCH ×2 (08:35→16:22)
[2021-02-18] MEDS: APIXABAN 2.5 MG TAB PO SCH (08:35)
--- NOTE | 2021-02-18 08:35 | NUR ---
PT WAS GIVEN THE SCHEDULED AM MEDICATIONS, TOLERATED, DIABETIC TEACHING GIVE, PT VERBALIZED UNDERSTANDING AND WILL CONTINUE TO MONITOR PT.
--- NOTE | 2021-02-18 09:57 | NUR ---
PT WAS GIVEN 20MEQ K-DUR FOR POTASSIUM LEVEL OF 3.4, WILL CONTINUE TO MONITOR PT.
[2021-02-18] MEDS ORDERED: POTASSIUM CHLORIDE 10 MEQ TABER PO SCH (10:00)
[2021-02-18] MEDS: NACL 0.9% 1,000 ML IV SCH (10:02)
--- NOTE | 2021-02-18 11:29 | NUR ---
CONTACTED PICCLINE SERVICE, SPOKE WITH JULIO CESAR, STATED FRANDY- PICC LINE RN WILL CALL FOR ETA AND WILL COME LATER TODAY. KIKE-ANA LAURA ASSIGNED MADE AWARE.
[2021-02-18 12:00] VITALS: BP 147/73
[2021-02-18] MEDS: INSULIN LISPRO SLIDING SCALE 100 UNITS/ML VIAL SUBQ PRN (12:02)
--- NOTE | 2021-02-18 12:03 | NUR ---
PT WAS GIVEN THE SCHEDULED IVPB MEDICATION AND INSULIN 2 UNITS FOR BLOOD GLUCOSE OF 168, WILL CONTINUE TO MONITOR PT.
[2021-02-18] MEDS ORDERED: ERTA1VIA2 IV (12:22)
[2021-02-18] MEDS ORDERED: APIX5TAB PO (12:22)
[2021-02-18 16:00] VITALS: BP 152/152
--- NOTE | 2021-02-18 16:22 | NUR ---
PT WAS GIVEN THE SCHEDULED MEDICATION, BLOOD GLUCOSE IS 138 AND NO INSULIN COVERAGE NEEDED.
--- NOTE | 2021-02-18 17:45 | NUR ---
MIDLINE INSERTION WAS STARTED NOW.
--- NOTE | 2021-02-18 18:05 | NUR ---
MIDLINE WAS INSERTED ON THE RT UPPER ARM.
--- NOTE | 2021-02-18 18:14 | NUR ---
02/18/21 RD INITIAL ASSESSMENT COMPLETED PLEASE REFER TO NUTRITION ASSESSMENT UNDER CARE ACTIVITY FOR ESTIMATED NUTRITIONAL NEEDS. RD RECOMMENDATIONS: 1. RECOMMEND CONTINUE 60GM CCHO DIET; SUFFICIENT TO MEET ESTIMATED NEEDS 2. HONOR FOOD PREFERNCES / ENCOURAGE INCREASED PO INTAKE 3. ADD DIET HEALTHSHAKES TID 4. F/U 3-5 DAYS; MODERATE RISK JD CULLEN MBA, RD
--- NOTE | 2021-02-18 18:35 | NUR ---
DISCHARGED PT TO HOME WITH MIDLINE IN PLACE FOR IV ANTIBIOTICS CONTINUATION FOR 7 DAYS MORE. DISCHARGED TEACHINGS AND INSTRUCTIONS WERE GIVEN TO PT AND PT VERBALIZED UNDERSTANDING, IV LINE AND ARM BAND REMOVED, PT IS STABLE AT THIS TIME.
== END 2021-02-18 18:40 | disposition home or self-care (01) | DRG 720 ==
LOC: MED 19:55 → MTU 02-14 03:22
PROVIDERS: ADMIT Family Medicine; ATTEND Family Medicine
PROC: 05HY33Z Insertion of Infusion Device into Upper Vein, Percutaneous Approach (ICD-10-PCS; principal; 2021-02-18)
DX: A41.9 Sepsis, unspecified organism (principal); J96.00 Acute respiratory failure, unspecified whether with hypoxia or hypercapnia; I26.99 Other pulmonary embolism without acute cor pulmonale; E44.0 Moderate protein-calorie malnutrition; E87.1 Hypo-osmolality and hyponatremia; D68.59 Other primary thrombophilia; E11.65 Type 2 diabetes mellitus with hyperglycemia; N39.0 Urinary tract infection, site not specified; B96.20 Unspecified Escherichia coli [E. coli] as the cause of diseases classified elsewhere; J45.909 Unspecified asthma, uncomplicated; Z20.822 Contact with and (suspected) exposure to COVID-19; D64.9 Anemia, unspecified; E78.2 Mixed hyperlipidemia; Z16.12 Extended spectrum beta lactamase (ESBL) resistance; Z83.3 Family history of diabetes mellitus; Z68.28 Body mass index [BMI] 28.0-28.9, adult
CPT/HCPCS: 36415; 36600; 71045; 71275; 74018; 80048; 80053; 80305; 81001; 81025; 82150; 82550; 82728; 82803; 82948; 83036; 83605; 83615; 83690; 83735; 83880; 84100; 84439; 84443; 84484; 85025; 85379; 85384; 85610; 85730; 86140; 87040; 87081; 87086; 87420; 87804; 93005; 93970; 96360; 96361; 99291; J0696; J1644; J1815; J2185; J2270; J2543; J7030; J7060; Q9967; U0003